=== PATIENT | female | born 1930 | race Caucasian/White ===

== ENCOUNTER 2017-01-15 10:37 | Inpatient (IN) | payer OTHER ==
[~2017-01-15] VITALS: Ht 157.5 cm; Wt 63.5 kg
[~2017-01-15 10:37] MED LIST: ACID CONTROL20 MG PO; ADULT LOW DOSE81 MG PO; AZOPT OPHTH1 %/10 M1 OPHTHALMIC; CARDIZEM CD240 MG PO; CIPROFLOXACIN500 M1 PO; CIPROFLOXACIN500 M3 GT; CIPROFLOXACIN500 M3 PO; CRESTOR10 MG PO; CYCLOBENZAPRINE10 MG PO; DILTIAZEM 24HR180 M2 PO; DILTIAZEM 24HR180 MG PO; DILTIAZEM ER180 M1 PO; FUROSEMIDE 20 M20 M1 PO; HYDROCODONE-AP1 EAC6 PO; LASIX 20 MG TAB20 MG PO; LORTAB 5 MG/5001 TA1 PO; MACROBID 100 M100 M1 PO; MIRALAX17 GM PO; MIRALAX255 GM; NORCO 5-325 TA1 EACH; NORCO 5-325 TA1 EACH PO; PHENERGAN 25 MG25 M1 PO; PLAVIX 75 MG TA75 MG PO; XALATAN2.5 ML OPHTHALMIC; ZETIA10 MG PO
[2017-01-15 10:39] VITALS: BP 122/68
[2017-01-15] MEDS ORDERED: ACID CONTROLLER20 MG PO (11:13)
[2017-01-15] MEDS ORDERED: TYLENOL325 MG PO (11:19)
[2017-01-15] MEDS ORDERED: NORVASC5 MG PO (11:20)
[2017-01-15] MEDS ORDERED: ARTIFICIAL TEA1 EACH OP (11:21)
[2017-01-15] MEDS ORDERED: ASPIR 8181 MG PO (11:22)
[2017-01-15] MEDS ORDERED: AZOPT OPHTH1 %/10 M1 OP (11:22)
[2017-01-15] MEDS ORDERED: CRESTOR10 MG PO (11:23)
[2017-01-15] MEDS ORDERED: COLACE100 MG PO (11:24)
[2017-01-15 11:25] LABS: URINE BILIRUBIN NEGATIVE (Negative); URINE BLOOD TRACE (Negative); URINE COLOR YELLOW; URINE GLUCOSE-RANDOM* NEGATIVE (Negative); URINE KETONES TRACE (Negative); URINE NITRITE POSITIVE (Negative); URINE PROTEIN (DIPSTICK) NEGATIVE (Negative); URINE SPECIFIC GRAVITY 1.015 (1.003-1.035); URINE UROBILINOGEN 0.2 E.U./dl (0.2-1.0)
[2017-01-15] MEDS ORDERED: KLOR-CON 1010 MEQ PO (11:25)
[2017-01-15] MEDS ORDERED: [UNRECOGNIZED DRUG - OTHER] TP (11:26)
[2017-01-15] MEDS ORDERED: IPRAT-ALBUT 0.5-3 ML IH (11:27)
[2017-01-15] MEDS ORDERED: MACROBID 100 M100 M2 PO (11:28)
[2017-01-15] MEDS ORDERED: REMERON15 MG PO (11:29)
[2017-01-15] MEDS ORDERED: OCUVITE EYE +1 EACH PO (11:32)
[2017-01-15] MEDS ORDERED: MIRALAX17 GM PO (11:33)
[2017-01-15] MEDS ORDERED: TOLTERODINE TART4 MG PO (11:33)
[2017-01-15] MEDS ORDERED: TRIAMCINOLONE A80 G2 TOP (11:34)
[2017-01-15] MEDS ORDERED: VITAMIN D 5050000 I1 PO (11:34)
[2017-01-15 11:54] LABS: SQUAMOUS 4-10 Moderate /LPF (0-3)
[2017-01-15 11:55] LABS: YEAST Present (None Seen)
[2017-01-15 11:59] LABS: BACTERIA >30 Many /HPF (None Seen); CASTS None Seen /LPF (None Seen); URINE RBC 3-10 Few /HPF (0-2)
[2017-01-15 12:00] LABS: CRYSTALS None Seen /LPF (None Seen); URINE WBC 6-15 Few /HPF (0-5)
[2017-01-15 12:46] LABS: CALCIUM 9.1 mg/dL (8.5-10.1); CREATININE 1.6 mg/dL (0.6-1.0); POTASSIUM 3.5 mmol/L (3.5-5.1)
[2017-01-15 12:47] LABS: HEMATOCRIT 45.7 % (37.0-47.0); HEMOGLOBIN 15.5 gm/dL (12.0-15.0); MCH 31.6 pg (26.0-34.0); MCHC 33.9 g/dL (28.0-37.0); MCV 93.2 fL (80.0-100.0); PLATELET COUNT 290 thou/uL (150-400); RDW 14.6 % (10.5-14.5); WBC 21.7 thou/uL (4.0-11.0)
[2017-01-15 12:48] LABS: MANUAL DIFF YES
[2017-01-15 13:33] LABS: ABSOLUTE NEUTROPHILS 18.7 thou/uL (1.4-8.2); TOTAL CELL COUNT 100
[2017-01-15 15:28] VITALS: BP 140/61
[2017-01-15 16:09] VITALS: BP 125/55
[2017-01-15 20:20] VITALS: BP 120/60
[2017-01-16] VITALS: BP 139/60
[2017-01-16 04:00] VITALS: BP 127/63
[2017-01-16 04:36] LABS: WBC 17.2 thou/uL (4.0-11.0)
[2017-01-16 04:38] LABS: HEMATOCRIT 36.3 % (37.0-47.0); MCH 31.4 pg (26.0-34.0); MCHC 33.2 g/dL (28.0-37.0); MCV 94.4 fL (80.0-100.0); PLATELET COUNT 218 thou/uL (150-400); RBC 3.84 mil/uL (4.20-5.00); RDW 14.9 % (10.5-14.5)
[2017-01-16 04:48] LABS: HEMOGLOBIN 12.1 gm/dL (12.0-15.0); MANUAL DIFF YES
[2017-01-16 04:49] LABS: ALBUMIN 2.3 g/dL (3.4-5.0); CALCIUM 8.1 mg/dL (8.5-10.1); POTASSIUM 3.5 mmol/L (3.5-5.1); TOTAL BILIRUBIN 0.4 mg/dL (<0.1-1.0); TOTAL PROTEIN 5.4 g/dL (6.4-8.2)
[2017-01-16 05:18] LABS: ABSOLUTE NEUTROPHILS 15.8 thou/uL (1.4-8.2); TOTAL CELL COUNT 100
[2017-01-16 08:10] VITALS: BP 112/66
[2017-01-16 15:50] VITALS: BP 126/65
[2017-01-16 19:36] VITALS: BP 122/64
[2017-01-17 04:47] VITALS: BP 148/71
[2017-01-17 07:07] VITALS: BP 134/65
[2017-01-17] MEDS ORDERED: TYLENOL325 MG PO (11:45)
[2017-01-17] MEDS ORDERED: PLAVIX 75 MG TA75 M1 PO (11:46)
[2017-01-17] MEDS ORDERED: COLACE100 MG PO (11:46)
[2017-01-17] MEDS ORDERED: MYRBETRIQ50 MG PO (11:47)
[2017-01-17 16:00] VITALS: BP 151/67
[2017-01-17 20:00] VITALS: BP 155/74
[2017-01-18 04:00] VITALS: BP 145/71
[2017-01-18 07:40] VITALS: BP 132/67
[2017-01-18 16:00] VITALS: BP 144/75
[2017-01-18 20:00] VITALS: BP 96/63
[2017-01-18 20:15] VITALS: BP 107/66
[2017-01-19 04:00] VITALS: BP 148/70
[2017-01-19 07:20] VITALS: BP 147/68
[2017-01-19] MEDS ORDERED: KEPPRA 500 MG500 M1 PO (10:08)
[2017-01-19 10:33] LABS: ABSOLUTE NEUTROPHILS 4.5 thou/uL (1.4-8.2); BASOPHILS 0.7 % (0.0-2.0); EOSINOPHILS 3.5 % (0.0-3.0); HEMOGLOBIN 12.4 gm/dL (12.0-15.0); LYMPHOCYTES 23.5 % (24.0-44.0); MCH 31.7 pg (26.0-34.0); MCHC 33.5 g/dL (28.0-37.0); MCV 94.5 fL (80.0-100.0); MONOCYTES 7.9 % (1.0-8.0); PLATELET COUNT 260 thou/uL (150-400); POLYS 64.4 % (36.0-66.0); RBC 3.91 mil/uL (4.20-5.00); RDW 14.7 % (10.5-14.5)
[2017-01-19 10:34] LABS: MANUAL DIFF NO
[2017-01-19 10:45] LABS: CALCIUM 8.5 mg/dL (8.5-10.1); CREATININE 0.7 mg/dL (0.6-1.0)
[2017-01-19] MEDS ORDERED: KEFLEX500 MG PO (16:20)
== END 2017-01-19 17:35 | DRG 871 ==
LOC: ER 10:37 → EROBS 13:41 → 3N 13:41
PROVIDERS: Emergency Medicine; Family Medicine
DX: A41.9 Sepsis, unspecified organism (principal); G93.41 Metabolic encephalopathy; N17.9 Acute kidney failure, unspecified; N39.0 Urinary tract infection, site not specified; Z96.0 Presence of urogenital implants; I11.0 Hypertensive heart disease with heart failure; I50.9 Heart failure, unspecified; F03.90 Unspecified dementia, unspecified severity, without behavioral disturbance, psychotic disturbance, mood disturbance, and anxiety; K21.9 Gastro-esophageal reflux disease without esophagitis; I73.9 Peripheral vascular disease, unspecified; Z85.828 Personal history of other malignant neoplasm of skin; Z86.73 Personal history of transient ischemic attack (TIA), and cerebral infarction without residual deficits; Z79.899 Other long term (current) drug therapy; Z90.5 Acquired absence of kidney; Z79.82 Long term (current) use of aspirin; Z98.42 Cataract extraction status, left eye; Z98.41 Cataract extraction status, right eye; I25.2 Old myocardial infarction; Z95.5 Presence of coronary angioplasty implant and graft; Z88.8 Allergy status to other drugs, medicaments and biological substances
CPT/HCPCS: 10096